=== PATIENT | male | born 1950 | race Caucasian/White ===

== ENCOUNTER 2018-06-01 06:05 | Outpatient (CLI) | payer OTHER, SELFPAY ==
--- NOTE | 2018-06-01 08:00 | HOLTER_ITS ---
HOLTER MONITOR Date: June 01, 2018 Date of Dictation: June 06, 2018 STUDY INDICATIONS: Syncope FINDINGS: Patient was monitored for 2 days. Baseline rhythm sinus rhythm. Average heart rate 65 bpm, range 43-140 bpm. Rare ectopy. 133 PVCs, 51 PACs. No ventricular tachycardia. 2 atrial runs; longest 4 beats; fastest 127 bpm. Lowest heart rate occurred at 06:16 hrs. There were no pauses greater than 3 seconds. There was no higher degree heart block. There were no patient events. FINAL INTERPRETATION: No significant tachy or bradyarrhythmias.
== END 2018-06-01 06:25 ==
PROVIDERS: PCP Family Medicine; Visit Provider Family Medicine
DX: R55 Syncope and collapse (principal)
CPT/HCPCS: 93225

== ENCOUNTER 2018-06-04 08:54 | Outpatient (CLI) | payer OTHER, SELFPAY | END 2018-06-04 09:14 | PROVIDERS: PCP Family Medicine; Visit Provider Family Medicine | DX: R55 Syncope and collapse (principal) | CPT/HCPCS: 93226 ==

== ENCOUNTER 2021-04-09 13:54 | Outpatient (CLI) | payer MEDICARE, SELFPAY ==
[2021-04-09 13:38] LABS: HCT 36.8 % (40.0-50.0); HGB 11.9 g/dL (13.5-17.5); MCH 31.2 pg (27.0-33.0); MCHC 32.3 % (32.0-36.0); MCV 96.6 fL (80-95); MPV 9.4 fL (8.0-11.0); Platelet Count 158 10^3/uL (130-400); RBC 3.81 10^6/uL (4.36-5.78); RDW-SD 57.4 fL; WBC 7.72 10^3/uL (4.4-10.8)
[2021-04-09 14:43] LABS: BUN 11 mg/dL (7-18); CREATININE 1.2 mg/dL (0.70-1.30); Estimated GFR 59.68 (mL/min/1.73m2)
[2021-04-12 12:32] LABS: ALT 40 U/L (16-63); AST 41 U/L (15-37)
== END 2021-04-09 13:55 | disposition home or self-care (01) ==
LOC: LBO 04-12 13:54
PROVIDERS: PCP Family Medicine; Visit Provider Dermatology
DX: L40.0 Psoriasis vulgaris (principal); Z79.899 Other long term (current) drug therapy
CPT/HCPCS: 36415; 84520; 85027; 82565; 84450; 84460

== ENCOUNTER → 2022-02-04 00:41 | Outpatient (CLI) | payer MEDICARE, SELFPAY ==
--- NOTE | 2022-02-04 06:45 | DI.US_ITS ---
Exam(s) US AAA SCREENING EXAM: US AAA SCREENING CLINICAL HISTORY: SCREENING FOR AAA, FORMER SMOKER, Z87.891 COMPARISON: US CAROTID ULTRASOUND from 10/30/2017 FINDINGS: Maximum diameter of the abdominal aorta is 2.2 cm, proximally. There is no evidence of aneurysm. Di stal to the aortic bifurcation both common iliac arteries also exhibit normal diameters. IMPRESSION: No evidence of abdominal aortic aneurysm. DATA REPOSITORY:
--- NOTE | 2022-02-04 09:14 | DI.CTLCSR_ITS ---
Exam(s) CT CHEST LUNG CANCER SCREEN EXAM: CT CHEST LUNG CANCER SCREEN CLINICAL HISTORY: Screening for lung cancer,FORMER SMOKER, Z87.891. TECHNIQUE: Imaging Protocol: Low Dose Technique CONTRAST MATERIAL: None COMPARISON: CT CHEST - LUNG CANCER SCREENING from 10/11/2017 FINDINGS: CHEST: LUNGS: COPD emphysematous changes again noted.. Some chronic-type interstitial disease is also noted . There are no new ominous nodules. There are no pleural effusions. No significant focal findings in trachea and mainstem bronchi. MEDIASTINUM: There is no obvious hilar nor mediastinal adenopathy. CARDIAC: Heart size is normal. There is no pericardial effusion.Caliber of the thoracic aorta is wit hin normal limits. OTHER: No adrenal mass is seen. No splenomegaly. OSSEOUS: No significant osseous lesions.. IMPRESSION: 1. COPD findings but no new ominous pulmonary nodules, pleural effusions, nor intrathoracic adenopath y. Lung RADS Cat 1 - Negative: No nodules and definitely benign nodules Lung-RADS 1.0 CATEGORIES: Category 0 - Prior chest CT exam(s) being located for comparison. Category 1 - Annual screening in 12 months. No nodules or definitely benign nodules. Category 2 - Annual screening in 12 months. Benign appearance. Nodules with low likelihood of becomin g active cancer. Category 3 - 6-month follow-up. Probably benign. Short-term follow-up suggested. Nodules with low lik elihood of becoming active cancer. Category 4A - 3-month follow-up and CT/PET if >8 mm in size. Suspicious finding. Findings which requi re additional testing. Category 4B - Findings which require additional testing and tissue sampling. Category 4X - Category 3 or 4 nodules with additional features or imaging findings that increases the suspicion of malignancy. Modifier S- Potentially clinically significant findings (non lung cancer) RADIATION DOSE DELIVERED: 80.73mGy.cm Total DLP 1.84mGyCTDIvol DATA REPOSITORY: All CT scans at this facility are submitted to the National Radiology Data Registry (NRDR) Dose Index Registry (DIR) with the [employer] ([employer]). RADIATION OPTIMIZATION: All CT scans at this facility use at least one of these dose optimization te chniques: automated exposure control; mA and/or kV adjustment per patient size (includes targeted exa ms where dose is matched to clinical indication); or iterative reconstruction.
== END ==
PROVIDERS: PCP Family Medicine; Visit Provider Family Medicine
DX: Z12.2 Encounter for screening for malignant neoplasm of respiratory organs (principal); Z87.891 Personal history of nicotine dependence; J44.9 Chronic obstructive pulmonary disease, unspecified; Z13.6 Encounter for screening for cardiovascular disorders
CPT/HCPCS: 71271; 76706

== ENCOUNTER 2022-12-08 13:35 | Outpatient (CLI) | payer OTHER, SELFPAY ==
--- NOTE | 2022-12-08 11:15 | DI.RAD_ITS ---
Exam(s) XR SHOULDER RT COMPLETE 2+V EXAM: XR SHOULDER RT COMPLETE 2+V CLINICAL HISTORY: Rt shoulder pain, M25.511, r/o bony path s/p fall, W00.9XXA, M25.60. TECHNIQUE: 2D digital imaging was performed. Five views. COMPARISON: No exams were available for comparison FINDINGS: BONES: No acute fracture is present. No bony destructive lesion is seen. JOINTS: No dislocation present. Mild degenerative changes. SOFT TISSUE: Interstitial changes right lung. IMPRESSION: Unremarkable radiographs of the right shoulder. DATA REPOSITORY: RADIATION DOSE DELIVERED:
--- NOTE | 2022-12-08 11:15 | DI.RAD_ITS ---
Exam(s) XR LUMBAR SPINE COMPLETE EXAM: XR LUMBAR SPINE COMPLETE CLINICAL HISTORY: Acute fall with Hx spine injury, Lower back injury, S39.92XA, W00.9XXA. TECHNIQUE: 2D digital imaging was performed. Five views. COMPARISON: CT CT CHEST LUNG CANCER SCREEN from 02/04/2022 FINDINGS: BONES: Mild compression fracture inferior endplate L1. Remaining vertebral body heights are maintain ed. DISKS: Intervertebral disc spaces are maintained. ALIGNMENT: Degenerative disc changes noted, severe at C L4-5 and L5-S1. SOFT TISSUE: Aortic calcified and normal in diameter. IMPRESSION: Mild compression fracture inferior endplate L1. DATA REPOSITORY: RADIATION DOSE DELIVERED:
== END 2022-12-08 13:55 ==
LOC: DI 13:36
PROVIDERS: PCP Family Medicine; Visit Provider Student in an Organized Health Care Education/Training Program
DX: M25.511 Pain in right shoulder (principal); M25.611 Stiffness of right shoulder, not elsewhere classified; M54.59 Other low back pain; S39.82XA Other specified injuries of lower back, initial encounter; S32.010A Wedge compression fracture of first lumbar vertebra, initial encounter for closed fracture; M51.37 Other intervertebral disc degeneration, lumbosacral region; W00.9XXA Unspecified fall due to ice and snow, initial encounter
CPT/HCPCS: 72110; 73030

== ENCOUNTER 2023-02-10 01:29 | Outpatient (CLI) | payer OTHER, SELFPAY ==
--- NOTE | 2023-02-10 07:30 | DI.CTLCSR_ITS ---
Exam(s) CT CHEST LUNG CANCER SCREEN EXAM: CT CHEST LUNG CANCER SCREEN CLINICAL HISTORY: Screening for lung cancer,former smoker, z87.891 TECHNIQUE: Imaging Protocol: Axial computed tomography images with coronal and sagittal reformatted images were created and reviewed COMPARISON: CT CT CHEST LUNG CANCER SCREEN from 02/04/2022 CR XR LUMBAR SPINE COMPLETE from 12/08/2022 FINDINGS: Tracheobronchial tree: Patent where visualized. Pulmonary parenchyma: Moderate centrilobular and paraseptal emphysematous changes are present. No fo xu consolidating infiltrates. Mild parenchymal scarring is present. Lung Nodules: None. Mediastinum and Suzanne: No dominant adenopathy or fluid collection. The esophagus is unremarkable. Thyroid gland: Unremarkable. Lymph nodes: Unremarkable. Pleura: No effusion or pneumothorax. Heart: The heart is not dilated. Mild coronary artery calcification is present. No pericardial effus ion. Aorta: Thoracic aorta non-dilated.Atherosclerosis is present. Upper abdomen: Unremarkable. Soft Tissues: Unremarkable. Bones: There is a depression in the inferior endplate of L1 which was not present on the CT examinati on from 02/04/2022. The findings may represent a fracture. There is loss of approximately 15 percent of the height of the vertebral body. IMPRESSION: 1. No pulmonary nodules. 2. Fracture of the inferior endplate of L1. There is loss of approximately 15 percent of the height of the vertebral body. The fracture was not present on the CT scan from 02/04/2022. The fracture seth ears to be subacute. Lung RADS Cat 1S - Negative: No nodules and definitely benign nodules. Other: Clinically Significant or Potentially Clinically Significant Findings (non lung cancer) Lung-RADS 1.0 CATEGORIES: Category 0 - Prior chest CT exam(s) being located for comparison. Category 1 - Annual screening in 12 months. No nodules or definitely benign nodules. Category 2 - Annual screening in 12 months. Benign appearance. Nodules with low likelihood of becomin g active cancer. Category 3 - 6-month follow-up. Probably benign. Short-term follow-up suggested. Nodules with low lik elihood of becoming active cancer. Category 4A - 3-month follow-up and CT/PET if >8 mm in size. Suspicious finding. Findings which requi re additional testing. Category 4B - Findings which require additional testing and tissue sampling. Suspicious finding. Category 4X - Category 3 or 4 nodules with additional features or imaging findings that increases the suspicion of malignancy. Modifier S- Potentially clinically significant finding. (Non lung cancer) Unexpected findings RADIATION DOSE DELIVERED: 85.47mGy.cm Total DLP 85.47mGy.cmTotal DLP DATA REPOSITORY: All CT scans at this facility are submitted to the National Radiology Data Registry (NRDR) Dose Index Registry (DIR) with the [employer] (ACR). RADIATION OPTIMIZATION: All CT scans at this facility use at least one of these dose optimization te chniques: automated exposure control; mA and/or kV adjustment per patient size (includes targeted exa ms where dose is matched to clinical indication); or iterative reconstruction.
== END 2023-02-10 01:49 ==
LOC: DI 01:30
PROVIDERS: PCP Family Medicine; Visit Provider Family Medicine
DX: Z87.891 Personal history of nicotine dependence (principal); Z12.2 Encounter for screening for malignant neoplasm of respiratory organs
CPT/HCPCS: 71271

== ENCOUNTER 2023-12-12 12:50 | Outpatient (CLI) | payer OTHER, SELFPAY ==
[2023-12-12 12:16] LABS: HCT 45.7 % (40.0-50.0); HGB 15.3 g/dL (13.5-17.5); MCH 31.9 pg (27.0-33.0); MCHC 33.5 % (32.0-36.0); MCV 95 fL (80-95); MPV 9.5 fL (8.0-11.0); Platelet Count 230 10^3/uL (130-400); RBC 4.79 10^6/uL (4.36-5.78); RDW 14.7 % (11.8-14.1); RDW-SD 50.9 fL; WBC 6.29 10^3/uL (4.4-10.8)
[2023-12-12 13:05] LABS: ALT 29 U/L (16-63); AST 29 U/L (15-37); BUN 16 mg/dL (7-18); CREATININE 1.4 mg/dL (0.70-1.30); Estimated GFR 53.07 (mL/min/1.73m2)
== END 2023-12-12 12:51 | disposition home or self-care (01) ==
LOC: LBO 12:50
PROVIDERS: PCP Family Medicine; Visit Provider Dermatology
DX: Z79.899 Other long term (current) drug therapy (principal)
CPT/HCPCS: 36415; 84520; 85027; 82565; 84450; 84460

== ENCOUNTER → 2024-02-15 03:34 | Outpatient (CLI) | payer OTHER, SELFPAY ==
--- NOTE | 2024-02-15 08:13 | DI.CTLCSR_ITS ---
Exam(s) CT CHEST LUNG CANCER SCREEN EXAM: CT CHEST LUNG CANCER SCREEN CLINICAL HISTORY: Screening for lung cancer,FORMER SMOKER, Z87.891. TECHNIQUE: Imaging Protocol: Low Dose Technique CONTRAST MATERIAL: None COMPARISON: CT CT CHEST LUNG CANCER SCREEN from 02/10/2023 FINDINGS: CHEST: LUNGS: COPD emphysematous changes again noted.. Fissure based nodular density in the right lung is u nchanged. However, there is now significant ground-glass infiltrate in the right lower lobe superimp osed upon the emphysematous changes. No pleural effusion. No distinct nodule. No pleural effusions . MEDIASTINUM: There is no obvious hilar nor mediastinal adenopathy. CARDIAC: Heart size is normal. There is no pericardial effusion.Caliber of the thoracic aorta is wit hin normal limits. OTHER: OSSEOUS: No significant osseous lesions.Previously described compression fracture at the inferior end plate level of L1 appears unchanged.. IMPRESSION: 1. Advanced emphysematous changes. No new distinct nodules but there is now significant area of infi ltrate in the right lower lobe. No new left lung findings. No pleural effusions. This right lower lobe infiltrate requires follow-up imaging in a few months time. 2. Previously described fracture of the inferior endplate of L1 with approximately 15 percent height loss appears unchanged. 3. Lung RADS Cat 3 - Probably Benign: Probably benign finding(s) - short term follow-up suggested; in clude nodules with a low likelihood of becoming a clinically active cancer. Lung-RADS 1.0 CATEGORIES: Category 0 - Prior chest CT exam(s) being located for comparison. Category 1 - Annual screening in 12 months. No nodules or definitely benign nodules. Category 2 - Annual screening in 12 months. Benign appearance. Nodules with low likelihood of becomin g active cancer. Category 3 - 6-month follow-up. Probably benign. Short-term follow-up suggested. Nodules with low lik elihood of becoming active cancer. Category 4A - 3-month follow-up and CT/PET if >8 mm in size. Suspicious finding. Findings which requi re additional testing. Category 4B - Findings which require additional testing and tissue sampling. Category 4X - Category 3 or 4 nodules with additional features or imaging findings that increases the suspicion of malignancy. Modifier S- Potentially clinically significant findings (non lung cancer) RADIATION DOSE DELIVERED: 80.56mGy.cm Total DLP DATA REPOSITORY: All CT scans at this facility are submitted to the National Radiology Data Registry (NRDR) Dose Index Registry (DIR) with the [employer] (ACR). RADIATION OPTIMIZATION: All CT scans at this facility use at least one of these dose optimization te chniques: automated exposure control; mA and/or kV adjustment per patient size (includes targeted exa ms where dose is matched to clinical indication); or iterative reconstruction.
== END ==
PROVIDERS: PCP Family Medicine; Visit Provider Family Medicine
DX: Z87.891 Personal history of nicotine dependence (principal); Z12.2 Encounter for screening for malignant neoplasm of respiratory organs; R91.8 Other nonspecific abnormal finding of lung field
CPT/HCPCS: 71271

== ENCOUNTER 2024-02-15 09:54 | Outpatient (CLI) | payer OTHER, SELFPAY ==
[2024-02-15 12:19] LABS: Anion Gap 4.6 mmol/L (3-11); BUN 14 mg/dL (7-18); CO2 26.4 mmol/L (21.0-32.0); CREATININE 1.3 mg/dL (0.70-1.30); Calcium 8.6 mg/dL (8.5-10.1); Chloride 103 mmol/L (98-107); Estimated GFR 58.01 (mL/min/1.73m2); Glucose 112 mg/dL (74-106); Potassium 3.7 mmol/L (3.5-5.1); Sodium 134 mmol/L (136-145)
== END 2024-02-15 09:55 | disposition home or self-care (01) ==
LOC: LBO 09:55
PROVIDERS: PCP Family Medicine; Visit Provider Family Medicine
DX: I10 Essential (primary) hypertension (principal)
CPT/HCPCS: 36415; 80048

== ENCOUNTER 2024-04-19 01:51 | Outpatient (CLI) | payer OTHER, SELFPAY ==
[2024-04-19 10:30] LABS: HCT 45.2 % (40.0-50.0); MCH 31.9 pg (27.0-33.0); MCHC 33.2 % (32.0-36.0); MCV 96 fL (80-95); MPV 9.9 fL (8.0-11.0); Platelet Count 216 10^3/uL (130-400); RDW 13.8 % (11.8-14.1); RDW-SD 48.4 fL
[2024-04-19 13:02] LABS: ALT 21 U/L (16-63); AST 21 U/L (15-37); BUN 15 mg/dL (7-18); CREATININE 1.4 mg/dL (0.70-1.30); Estimated GFR 52.74 (mL/min/1.73m2)
== END 2024-04-19 01:52 | disposition home or self-care (01) ==
LOC: LBO 01:51
PROVIDERS: PCP Family Medicine; Visit Provider Dermatology
DX: Z79.899 Other long term (current) drug therapy (principal); L40.0 Psoriasis vulgaris
CPT/HCPCS: 36415; 84520; 85027; 82565; 84450; 84460

== ENCOUNTER 2024-06-03 01:08 | Outpatient (CLI) | payer OTHER, SELFPAY ==
--- NOTE | 2024-06-03 09:17 | DI.CT_ITS ---
Exam(s) CT CHEST WO EXAM: CT CHEST WO CLINICAL HISTORY: F/u effusion seen on lung cancer screen,abnl chest ct,r93.89 TECHNIQUE: Imaging Protocol: Axial computed tomography images with coronal and sagittal reformatted images were created and reviewed CONTRAST MATERIAL: Noncontrast COMPARISON: CT CT CHEST LUNG CANCER SCREEN from 02/15/2024 FINDINGS: Pulmonary parenchyma: Emphysematous changes. Previously noted infiltrate has cleared. no new area o f consolidation. No dominant measurable mass. Tracheobronchial tree: No bronchiectasis or mucous plugging. Mediastinum and Suzanne: No dominant adenopathy or fluid collection. Pleura: No effusion. No pneumothorax. Heart: The heart is not dilated. Moderate coronary artery calcifications are seen. Aorta: Thoracic aorta non-dilated. Mild atherosclerotic changes. Pulmonary arteries: No gross evidence of emboli. Upper abdomen: No acute findings. Bones: Degenerative changes in the spine. Soft tissues: Unremarkable. IMPRESSION: Emphysematous changes. Resolution previously noted infiltrate. RADIATION DOSE DELIVERED: 185.16mGy.cm Total DLP DATA REPOSITORY: All CT scans at this facility are submitted to the National Radiology Data Registry (NRDR) Dose Index Registry (DIR) with the [employer] (A[employer]). RADIATION OPTIMIZATION: All CT scans at this facility use at least one of these dose optimization te chniques: automated exposure control; mA and/or kV adjustment per patient size (includes targeted exa ms where dose is matched to clinical indication); or iterative reconstruction.
== END 2024-06-03 01:28 ==
LOC: DI 01:08
PROVIDERS: PCP Family Medicine; Visit Provider Family Medicine
DX: R93.89 Abnormal findings on diagnostic imaging of other specified body structures (principal)
CPT/HCPCS: 71250

== ENCOUNTER 2024-10-22 11:24 | Outpatient (CLI) | payer MEDICARE, SELFPAY ==
[2024-10-22 10:25] LABS: HGB 15.4 g/dL (13.5-17.5); MCH 32.2 pg (27.0-33.0); MCHC 33.5 % (32.0-36.0); MCV 96 fL (80-95); MPV 9.4 fL (8.0-11.0); Platelet Count 216 10^3/uL (130-400); RBC 4.79 10^6/uL (4.36-5.78); RDW 13.4 % (11.8-14.1); RDW-SD 47.8 fL; WBC 7.56 10^3/uL (4.4-10.8)
[2024-10-22 10:43] LABS: ALT 34 U/L (16-63); AST 27 U/L (15-37); CREATININE 1.4 mg/dL (0.70-1.30); Estimated GFR 52.74 (mL/min/1.73m2)
[2024-10-22 10:58] LABS: Cholesterol 198 mg/dL (<200); Triglyceride 98 mg/dL (<150)
== END 2024-10-22 11:25 | disposition home or self-care (01) ==
LOC: LBO 11:25
PROVIDERS: PCP Family Medicine; Referring Provider Dermatology; Visit Provider Dermatology
DX: L40.1 Generalized pustular psoriasis (principal); Z79.899 Other long term (current) drug therapy
CPT/HCPCS: 36415; 85027; 82465; 82565; 84450; 84460; 84478

== ENCOUNTER 2025-01-15 03:31 | Outpatient (CLI) | payer MEDICARE, SELFPAY ==
[2025-01-15 13:43] LABS: HCT 40.8 % (40.0-50.0); HGB 13.8 g/dL (13.5-17.5); MCHC 33.8 % (32.0-36.0); MCV 98 fL (80-95); MPV 9.6 fL (8.0-11.0); Platelet Count 219 10^3/uL (130-400); RBC 4.18 10^6/uL (4.36-5.78); RDW 14.6 % (11.8-14.1); RDW-SD 52.1 fL; WBC 5.58 10^3/uL (4.4-10.8)
[2025-01-15 13:59] LABS: Cholesterol 167 mg/dL (<200); Triglyceride 124 mg/dL (<150)
[2025-01-15 14:06] LABS: ALT 42 U/L (16-63); AST 40 U/L (15-37); CREATININE 1.4 mg/dL (0.70-1.30); Estimated GFR 52.74 (mL/min/1.73m2)
== END 2025-01-15 03:32 | disposition home or self-care (01) ==
LOC: LBO 03:31
PROVIDERS: PCP Family Medicine; Visit Provider Dermatology
DX: L40.1 Generalized pustular psoriasis (principal); Z79.899 Other long term (current) drug therapy
CPT/HCPCS: 36415; 85027; 82465; 82565; 84450; 84460; 84478

== ENCOUNTER 2025-08-01 15:46 | Outpatient (REF) | payer MEDICARE, SELFPAY | END 2025-08-01 15:47 | disposition home or self-care (01) | LOC: LBN 15:46 | PROVIDERS: PCP Family Medicine; Visit Provider Family Medicine | DX: N50.812 Left testicular pain (principal); M54.50 Low back pain, unspecified | CPT/HCPCS: 87086 ==

== ENCOUNTER → 2025-08-08 03:10 | Outpatient (CLI) | payer MEDICARE, SELFPAY ==
--- NOTE | 2025-08-08 07:00 | DI.CT_ITS ---
Exam(s) CT RENAL COLIC WO EXAM: CT RENAL COLIC WO CLINICAL HISTORY: L sided pain, hematuria,renal colic,n23. TECHNIQUE: Imaging Protocol: Axial computed tomography images with coronal and sagittal reformatted images were created and reviewed CONTRAST MATERIAL: Intravenous: none Oral: None COMPARISON: No exams were available for comparison FINDINGS: VISUALIZED LUNG BASES: Mild increased markings in lung bases. No pleural effusions. ABDOMEN: There is no ascites. LIVER: There are no obvious focal hepatic lesions evident of this noninfused study. GALLBLADDER/BILIARY: No obvious gallbladder pathology. CBD is not dilated. PANCREAS: No evidence of pancreatic mass nor dilatation of the pancreatic duct. SPLEEN: Spleen is not enlarged. No obvious intrasplenic lesions. ADRENALS: There are no significant adrenal masses. KIDNEYS:No cysts evident. No solid renal masses. No calculi nor hydronephrosis. . ABDOMINAL AORTA: Abdominal aorta is calcified but not enlarged. LYMPH NODES: There is no retroperitoneal nor paraaortic adenopathy. ABDOMINAL WALL: No evidence of significant anterior abdominal wall nor inguinal hernia. GI: There is no evidence of bowel obstruction, free air, nor abscess. PELVIS: LYMPH NODES: There is no intrapelvic nor inguinal adenopathy. GI: No evidence of appendicitis.No evidence of sigmoid diverticulitis. There is fat halo sign evident in the terminal ileum as well as in the cecum and ascending-right colon. There is also a centrally calcified peripherally fatty lymph node in the mesentery at this level measuring 1.5 x 1.0 cm. URINARY BLADDER: Collapsed. Thickened wall but possibly related to under distension. There are no calculi at the ureterovesical junctions in the pelvic ureters are not dilated. REPRODUCTIVE: Moderately enlarged prostate which measures 4.8 cm wide. There is some calcification in the prostate noted. OSSEOUS: No significant osseous lesions. No acute fractures. Inferior endplate Schmorl's node invagination at L1 vertebral body. Multilevel chronic disc space narrowing noted L4-5 and L5-S1 as well as L2-3 levels. No significant osseous lesions. IMPRESSION: 1. No acute findings in the abdomen and pelvis. No evidence of acute appendicitis nor diverticulitis. 2. Fat halo sign a noted in the right-side of the colon and terminal ileum. This may be not clinically significant but can also be seen in inflammatory bowel disease. There is also a fatty lymph node measuring 15 x 10 mm in this region. RADIATION DOSE DELIVERED: 430.7mGy.cm Total DLP DATA REPOSITORY: All CT scans at this facility are submitted to the National Radiology Data Registry (NRDR) Dose Index Registry (DIR) with the [employer] ([employer]). RADIATION OPTIMIZATION: All CT scans at this facility use at least one of these dose optimization techniques: automated exposure control; mA and/or kV adjustment per patient size (includes targeted exams where dose is matched to clinical indication); or iterative reconstruction.
== END ==
LOC: DI 03:10
PROVIDERS: PCP Family Medicine; Visit Provider Family Medicine
DX: N23 Unspecified renal colic (principal)
CPT/HCPCS: 74176